=== PATIENT | female | born 1955 ===

== ENCOUNTER → 2019-01-11 | Outpatient (CLI) | payer BC ==
--- NOTE | 2019-01-12 14:40 | MM ---
Reason for exam: screening (asymptomatic). Last mammogram was performed 11 months ago. History: Patient is postmenopausal. Physical Findings: A clinical breast exam by your physician is recommended on an annual basis and results should be correlated with mammographic findings. MG Screening Mammo w CAD Bilateral CC and MLO view(s) were taken. Prior study comparison: January 31, 2018, mammogram. The breast tissue is heterogeneously dense. This may lower the sensitivity of mammography. Finding: There are typically benign round, regional calcifications in the central position of both breasts. There is no discrete abnormality. ASSESSMENT: Benign, BI-RAD 2 RECOMMENDATION: Routine screening mammogram of both breasts in 1 year.
== END | disposition home or self-care (01) ==
LOC: RADMAMWWP 09:04
PROVIDERS: ATTEND Obstetrics & Gynecology
DX: Z12.31 Encounter for screening mammogram for malignant neoplasm of breast (principal)
CPT/HCPCS: 77067

== ENCOUNTER 2019-10-10 08:18 | Emergency (ER) | payer BC ==
[2019-10-10 08:25] VITALS: RESP 18
[2019-10-10] MEDS ORDERED: SODIUM CHLORIDE 0.9% 500 ML 500 ML IV STA (08:50)
--- NOTE | 2019-10-10 08:59 | ED ---
General Adult HPI - General Chief complaint: Syncope Stated complaint: syncope/black out Time Seen by Provider: 10/10/19 08:26 Source: patient Mode of arrival: wheelchair Limitations: no limitations - History of Present Illness Initial comments: Patient is 64-year-old female presenting to the emergency Department with complaints of a near syncopal episode that happened approximately one hour prior to arrival. Patient states she was standing in her kitchen when she states everything went black and she felt like she was going to fall over. Patient d enies total loss of consciousness. She states she felt lightheaded. She attempted to go blow dry her hair and this feeling continued. Patient states she does not feel like she is walking straight and feels worse when she tilts her head backwards. She denies history of vertigo or prior syncopal episodes. She denies recent fever, chills, cough. Patient states she is very active and was feeling her normal self all day yesterday. She's been eating and drinking as normal. She has not had no recent medication changes. Patient is also complaining of intermittent very mild chest pain throughout this morning but states she does have a history of "cartilage pains" and this feels like her norm al pain. Patient denies shortness of breath, nausea, vomiting, urinary complaints. She was slightly nauseous this morning but that has since gone away. She has no other complaints at this time. Upon arrival to the ER, her vital signs are stable. - Related Data Previous Rx's Medication Instructions Recorded Meclizine [Antivert] 25 mg PO BID PRN #20 tab 10/10/19 Ondansetron Odt [Zofran Odt] 4 mg PO Q8HR PRN #10 tab 10/10/19 Allergies Allergy/AdvReac Type Severity Reaction Status Date / Time No Known Allergies Allergy Verified 10/10/19 08:25 Review of Systems ROS Statement: Those systems with pertinent positive or pertinent negative responses have been documented in the HPI. ROS Other: All systems not noted in ROS Statement are negative. Past Medical History Past Medical History: No Reported History History of Any Multi-Drug Resistant Organisms: None Reported Past Surgical History: Back Surgery, Hysterectomy Additional Past Surgical History / Comment(s): neck surgery Past Psychological History: No Psychological Hx Reported Smoking Status: Never smoker Past Alcohol Use History: None Reported Past Drug Use History: None Reported General Exam - General Exam Comments Initial Comments: GENERAL: Well-appearing, well-nourished and in no acute distress. HEAD: Atraumatic, normocephalic. EYES: Pupils equal round and reactive to light, extraocular movements intact, sclera anicteric, conjunctiva are normal. ENT: TMs normal, nares patent, oropharynx clear without exudates. Moist mucous membranes. NECK: Normal range of motion, supple without lymphadenopathy or JVD. LUNGS: Breath sounds clear to auscultation bilaterally and equal. No wheezes rales or rhonchi. HEART: Regular rate and rhythm without murmurs, rubs or gallops. ABDOMEN: Soft, nontender, normoactive bowel sounds. No guarding, no rebound. No masses appreciated. : Deferred EXTREMITIES: Normal range of motion, no pitting or edema. No clubbing or cyanosis. NEUROLOGICAL: Cranial nerves II through XII grossly intact. Normal speech, normal gait. PSYCH: Normal mood, normal affect. SKIN: Warm, Dry, normal turgor, no rashes or lesions noted. Limitations: no limitations Neurological exam: Present: alert, CN II-XII intact Expanded Cranial nerves: EOM's Intact: Normal, Tongue Deviation: Normal, Nystagmus: Normal, Facial Sensation: Normal Cerebellar function: Finger to Nose: Normal, Heel to Mims: Normal, Romberg: Normal Upper motor neuron: Poncho Neglect: Normal, Pronator Drift: Normal Sensory exam: Upper Extremity Light Touch: Normal, Lower Extremity Light Touch: Normal Motor strength exam: RUE: 5, LUE: 5, RLE: 5, LLE: 5 Course Vital Signs 10/10/19 10/10/19 10/10/19 08:19 10:03 10:28 Temperature 97.9 F Pulse Rate 70 67 Respiratory 18 18 Rate Blood Pressure 148/89 146/83 Blood Pressure 160/93 [Right Arm Sitting] Blood Pressure 157/87 [Right Arm Standing] Blood Pressure 142/86 [Right Arm Supine] O2 Sat by Pulse 96 98 Oximetry 10/10/19 10/10/19 11:39 12:50 Temperature 98.1 F Pulse Rate 64 76 Respiratory 18 18 Rate Blood Pressure 127/79 127/79 Blood Pressure [Right Arm Sitting] Blood Pressure [Right Arm Standing] Blood Pressure [Right Arm Supine] O2 Sat by Pulse 100 100 Oximetry EKG Findings - EKG Comments: EKG Findings:: Normal sinus rhythm, left axis deviation. No signs of acute ischemia. Ventricular rate 62, HI interval 180, QTC 420. Medical Decision Making - Medical Decision Making Patient is a healthy 64-year-old female presenting with near syncopal event as well as dizziness with sudden onset this morning. She denies history of vertical. Her exam is unremarkable, no neural deficits. CT of the head shows no acute abnormalities. Patient's lab work is unremarkable, urine is normal, EKG shows no acute changes, troponin normal. Patient was given fluids, meclizine, Zofran, Benadryl. Given the sudden onset of her symptoms a CT angiogram the head and neck was all ordered which reveals no acute abnormalities. Patient reports improvement in her symptoms. I discussed with patient her symptoms are most likely related to vertigo. She is stable for discharge. Patient will be given ENT follow-up as well as prescription for Zofran and meclizine. She is in agreement with this plan of care. Return parameters were discussed with the patient she verbalized understanding. Case discussed with Dr. Harrison. - Lab Data Result diagrams: 10/10/19 09:00 10/10/19 09:00 Lab Results 10/10/19 10/10/19 10/10/19 Range/Units 09:00 09:00 09:00 WBC 4.7 (3.8-10.6) k/uL RBC 4.69 (3.80-5.40) m/uL Hgb 14.7 (11.4-16.0) gm/dL Hct 42.5 (34.0-46.0) % MCV 90.6 (80.0-100.0) fL MCH 31.2 (25.0-35.0) pg MCHC 34.5 (31.0-37.0) g/dL RDW 12.5 (11.5-15.5) % Plt Count 299 (150-450) k/uL Neutrophils % 53 % Lymphocytes % 33 % Monocytes % 7 % Eosinophils % 4 % Basophils % 1 % Neutrophils # 2.5 (1.3-7.7) k/uL Lymphocytes # 1.5 (1.0-4.8) k/uL Monocytes # 0.3 (0-1.0) k/uL Eosinophils # 0.2 (0-0.7) k/uL Basophils # 0.0 (0-0.2) k/uL PT 9.5 (9.0-12.0) sec INR 0.9 (<1.2) APTT 21.8 L (22.0-30.0) sec Sodium 139 (137-145) mmol/L Potassium 4.3 (3.5-5.1) mmol/L Chloride 104 (98-107) mmol/L Carbon Dioxide 30 (22-30) mmol/L Anion Gap 5 mmol/L BUN 17 (7-17) mg/dL Creatinine 0.68 (0.52-1.04) mg/dL Est GFR (CKD-EPI)AfAm >90 (>60 ml/min/1.73 sqM) Est GFR (CKD-EPI)NonAf >90 (>60 ml/min/1.73 sqM) Glucose 99 (74-99) mg/dL Plasma Lactic Acid Roland (0.7-2.0) mmol/L Calcium 9.5 (8.4-10.2) mg/dL Magnesium 2.1 (1.6-2.3) mg/dL Total Bilirubin 0.6 (0.2-1.3) mg/dL AST 39 H (14-36) U/L ALT 38 H (4-34) U/L Alkaline Phosphatase 85 (38-126) U/L Troponin I (0.000-0.034) ng/mL Total Protein 7.1 (6.3-8.2) g/dL Albumin 4.4 (3.5-5.0) g/dL Urine Color Urine Appearance (Clear) Urine pH (5.0-8.0) Ur Specific [place] (1.001-1.035) Urine Protein (Negative) Urine Glucose (UA) (Negative) Urine Ketones (Negative) Urine Blood (Negative) Urine Nitrite (Negative) Urine Bilirubin (Negative) Urine Urobilinogen (<2.0) mg/dL Ur Leukocyte Esterase (Negative) Urine RBC (0-5) /hpf Urine WBC (0-5) /hpf 10/10/19 10/10/19 10/10/19 Range/Units 09:00 09:00 11:12 WBC (3.8-10.6) k/uL RBC (3.80-5.40) m/uL Hgb (11.4-16.0) gm/dL Hct (34.0-46.0) % MCV (80.0-100.0) fL MCH (25.0-35.0) pg MCHC (31.0-37.0) g/dL RDW (11.5-15.5) % Plt Count (150-450) k/uL Neutrophils % % Lymphocytes % % Monocytes % % Eosinophils % % Basophils % % Neutrophils # (1.3-7.7) k/uL Lymphocytes # (1.0-4.8) k/uL Monocytes # (0-1.0) k/uL Eosinophils # (0-0.7) k/uL Basophils # (0-0.2) k/uL PT (9.0-12.0) sec INR (<1.2) APTT (22.0-30.0) sec Sodium (137-145) mmol/L Potassium (3.5-5.1) mmol/L Chloride (98-107) mmol/L Carbon Dioxide (22-30) mmol/L Anion Gap mmol/L BUN (7-17) mg/dL Creatinine (0.52-1.04) mg/dL Est GFR (CKD-EPI)AfAm (>60 ml/min/1.73 sqM) Est GFR (CKD-EPI)NonAf (>60 ml/min/1.73 sqM) Glucose (74-99) mg/dL Plasma Lactic Acid Roland 0.7 (0.7-2.0) mmol/L Calcium (8.4-10.2) mg/dL Magnesium (1.6-2.3) mg/dL Total Bilirubin (0.2-1.3) mg/dL AST (14-36) U/L ALT (4-34) U/L Alkaline Phosphatase (38-126) U/L Troponin I <0.012 (0.000-0.034) ng/mL Total Protein (6.3-8.2) g/dL Albumin (3.5-5.0) g/dL Urine Color Light Yellow Urine Appearance Clear (Clear) Urine pH 6.5 (5.0-8.0) Ur Specific [place] 1.022 (1.001-1.035) Urine Protein Negative (Negative) Urine Glucose (UA) Negative (Negative) Urine Ketones Negative (Negative) Urine Blood Negative (Negative) Urine Nitrite Negative (Negative) Urine Bilirubin Negative (Negative) Urine Urobilinogen <2.0 (<2.0) mg/dL Ur Leukocyte Esterase Trace H (Negative) Urine RBC <1 (0-5) /hpf Urine WBC 1 (0-5) /hpf Disposition Clinical Impression: Dizziness, Vertigo Disposition: HOME SELF-CARE Condition: Stable Instructions (If sedation given, give patient instructions): Vertigo (ED) Additional Instructions: Please return to the Emergency Department if symptoms worsen or any other concerns. May take a meclizine as needed for additional symptoms. Follow up with ENT as discussed. Prescriptions: Meclizine [Antivert] 25 mg PO BID PRN #20 tab PRN Reason: Vertigo Ondansetron Odt [Zofran Odt] 4 mg PO Q8HR PRN #10 tab PRN Reason: Nausea Is patient prescribed a controlled substance at d/c from ED?: No Referrals: Pooja Ohara MD [Primary Care Provider] - 1-2 days Santi Castano MD [STAFF PHYSICIAN] - 1-2 days
[2019-10-10 09:25] LABS: Basophils % (A) 1 %; Eosinophils # (A) 0.2 k/uL (0-0.7); Eosinophils % (A) 4 %; HCT 42.5 % (34.0-46.0); HGB 14.7 gm/dL (11.4-16.0); Lymphocytes # (A) 1.5 k/uL (1.0-4.8); Lymphocytes % (A) 33 %; MCH 31.2 pg (25.0-35.0); MCHC 34.5 g/dL (31.0-37.0); MCV 90.6 fL (80.0-100.0); Mean Platelet Volume 6.6; Monocytes # (A) 0.3 k/uL (0-1.0); Monocytes % (A) 7 %; Neutrophils # (A) 2.5 k/uL (1.3-7.7); Neutrophils % (A) 53 %; Platelet Count 299 k/uL (150-450); RBC 4.69 m/uL (3.80-5.40); RDW 12.5 % (11.5-15.5); WBC 4.7 k/uL (3.8-10.6)
[2019-10-10 09:36] LABS: ALT 38 U/L (4-34); AST 39 U/L (14-36); African American GFR (CKD) >90 (>60 ml/min/1.73 sqM); Albumin 4.4 g/dL (3.5-5.0); Alkaline Phosphatase 85 U/L (38-126); Anion Gap 5 mmol/L; Blood Urea Nitrogen 17 mg/dL (7-17); Calcium 9.5 mg/dL (8.4-10.2); Carbon Dioxide 30 mmol/L (22-30); Chloride 104 mmol/L (98-107); Glucose 99 mg/dL (74-99); Magnesium 2.1 mg/dL (1.6-2.3); Non-African American GFR(CKD) >90 (>60 ml/min/1.73 sqM); Potassium 4.3 mmol/L (3.5-5.1); Sodium 139 mmol/L (137-145); Total Bilirubin 0.6 mg/dL (0.2-1.3); Total Protein 7.1 g/dL (6.3-8.2)
[2019-10-10 09:40] LABS: INR 0.9 (<1.2); Partial Thromboplastin Time 21.8 sec (22.0-30.0); Prothrombin Time 9.5 sec (9.0-12.0)
--- NOTE | 2019-10-10 10:02 | CT ---
EXAMINATION TYPE: CT brain wo con DATE OF EXAM: 10/10/2019 HISTORY: Near syncope CT DLP: 1099.4 mGycm. Automated Exposure Control for Dose Reduction was Utilized. TECHNIQUE: CT scan of the head is performed without contrast. COMPARISON: None. FINDINGS: There is no acute intracranial hemorrhage or midline shift identified. Ventricles and sul ci within normal limits in size for patient's age. Mehta-white matter differentiation maintained. The globes are intact and the visualized sinuses are clear. IMPRESSION: No acute intracranial hemorrhage or midline shift.
[2019-10-10] MEDS ORDERED: ONDANSETRON 4 MG/2 ML VIAL IVP STA (10:06)
[2019-10-10] MEDS ORDERED: MECLIZINE 12.5 MG TAB PO STA (10:07)
--- NOTE | 2019-10-10 10:07 | XR ---
EXAMINATION TYPE: XR chest 2V DATE OF EXAM: 10/10/2019 COMPARISON: NONE HISTORY: Near syncope, dizziness and weakness TECHNIQUE: Frontal and lateral views of the chest are obtained. FINDINGS: There is no focal air space opacity, pleural effusion, or pneumothorax seen. The cardiac silhouette size is within normal limits. There are overlying cardiac leads. Postop changes are noted to the lower cervical spine. The osseous structures are intact. IMPRESSION: No acute cardiopulmonary process.
[2019-10-10] MEDS ORDERED: diphenhydrAMINE 50 MG/ML 1 ML VIAL IVP STA (10:10)
[2019-10-10 11:23] LABS: Appearance,Urine Clear (Clear); Bilirubin,Urine Negative (Negative); Blood,Urine Negative (Negative); Color,Urine Light Yellow; Glucose,Urine (UA) Negative (Negative); Ketones,Urine Negative (Negative); Leukocyte Esterase,Urine Trace (Negative); Nitrite,Urine Negative (Negative); PH, Urine 6.5 (5.0-8.0); Protein,Urine Negative (Negative); RBC,Urine <1 /hpf (0-5); Specific Gravity,Urine 1.022 (1.001-1.035); Urobilinogen,Urine <2.0 mg/dL (<2.0); WBC,Urine 1 /hpf (0-5)
[2019-10-10 11:41] VITALS: BP 127/79
--- NOTE | 2019-10-10 12:18 | CT ---
EXAMINATION TYPE: CT angio head neck DATE OF EXAM: 10/10/2019 HISTORY: Syncope, and vertigo., COMPARISON: NONE CT DLP: 407.2 mGycm. Automated Exposure Control for Dose Reduction was Utilized. TECHNIQUE: CTA scan of the head and neck are performed without and with IV Contrast, patient injecte d with 65 ml mL of Isovue 370, axial images are obtained, coronal and sagittal reformatted images are reviewed. Three-D reconstructed images are created on an independent workstation and reviewed. FINDINGS: Carotid/Vascular Structures: Normal three-vessel origin from aortic arch. Right common carotid artery shows normal origin from right brachiocephalic artery. No significant plaque or stenosis in common o r internal carotid arteries bilaterally including level of carotid bulb. Patent external carotid erasto hernando bilaterally without significant plaque or stenosis. There is dominant left vertebral artery. Vertebral arteries are patent to basilar junction. Hypoplast ic bilateral posterior communicating arteries. No significant focal stenosis or aneurysmal change in the posterior circulation. Anterior circulation shows poor visualized are hypoplastic anterior commun icating artery. There is no significant focal stenosis or aneurysmal change in the anterior circulati on. Other: Postsurgical changes with anterior fusion plate C5-C7 levels and some ossific fusion with pepito ficial disc material. IMPRESSION: 1. No significant focal stenosis or aneurysmal change at level of [place]. 2. No significant stenosis in the common or internal carotid arteries bilaterally.
[2019-10-10] MEDS ORDERED: ONDANSETRON 4 MG ODT STARTER PACK 2 TAB BTL PO STA (12:44)
[2019-10-10 12:54] VITALS: PULSE 76; TEMP 98.1
== END 2019-10-10 12:50 | disposition home or self-care (01) ==
LOC: EC 08:18
DX: R42 Dizziness and giddiness (principal); R55 Syncope and collapse
CPT/HCPCS: 99284; 96374; 96375; 96361; 36415; 93005; 80053; 83605; 83735; 84484; 85025; 85610; 85730; 81001; 71046; 70496; 70450; 70498; J1200; J2405; S0119; Q9967